=== PATIENT | female | born 1985 | race Caucasian/White ===

== ENCOUNTER 2017-10-29 00:56 | Observation (INO) | payer BC ==
[2016-03-29 15:52] VITALS: Ht 162.6 cm; Wt 54.4 kg
--- NOTE | 2017-10-28 22:52 | HISTORY AND PHYSICAL ---
DATE OF ADMISSION: October 29, 2017 CHIEF COMPLAINT Abnormal bleeding. HISTORY OF PRESENT ILLNESS The patient is a 31-year-old 2 with a many month history of abnormal bleeding. She reports the bleeding is moderate with severe at times which would last several days. The bleeding has worsened over the past several months and has not been improved with use of oral contraceptives. After discussion of risks and alternatives, the patient elected to proceed with laparoscopic-assisted vaginal hysterectomy, bilateral salpingectomy, modified Bowen culdoplasty, and diagnostic cystoscopy. MEDICATIONS 1. Cryselle. 2. Lysine. 3. TruBiotics. 4. vitamin. 5. Zofran. ALLERGIES SULFA. REVIEW OF SYSTEMS GENITOURINARY: Per HPI. GENERAL, SKIN, EYES, EARS, NOSE, MOUTH, NECK, RESPIRATORY, CARDIOVASCULAR, GASTROINTESTINAL, NEUROLOGICAL, AND PSYCHIATRIC: All reviewed and noncontributory. PAST MEDICAL HISTORY 1. HPV. 2. Mild dysplasia. PAST SURGICAL HISTORY She has had two C-sections along with a bilateral tubal ligation. FAMILY HISTORY Father with a stroke, heart disorder, pacemaker, and stomach cancer. SOCIAL HISTORY She drinks occasionally. She is a former smoker. No illicit drug use. PHYSICAL EXAMINATION VITAL SIGNS: BP 100/58, temp 98.2, weight 126. CONSTITUTIONAL: Well-nourished, well-developed female in no distress. SKIN: Without rash or lesions. NECK: Supple, without masses. HEART: Regular rate and rhythm. LUNGS: Clear to auscultation bilaterally. ABDOMEN: Soft, nontender, nondistended. Bowel sounds positive. EXTREMITIES: Nontender. No edema. PSYCHIATRIC: Alert and oriented times three. Normal mood and affect. PELVIC: Normal external female genitalia. Well-estrogenized vaginal lining. No bladder tenderness. No adnexal masses or tenderness. Uterus anteverted, normal size, mobile, and nontender. ASSESSMENT AND PLAN Menorrhagia. Plan to perform laparoscopic-assisted vaginal hysterectomy, bilateral salpingectomy, modified Bowen culdoplasty, and diagnostic cystoscopy. [facility]
[~2017-10-29] VITALS: Ht 162.6 cm; Wt 54.4 kg
[2017-10-29] VITALS (11 sets, daily range): BP systolic 80–118; BP diastolic 51–76
[~2017-10-29 00:56] MED LIST: CEP500 PO; DENIES; IBUP800T37 PO; LOR5 PO; ONDA4TAB9 PO; OXYC-373 PO; PER PO; PREN-119 PO
[2017-10-29 05:58] LABS: PLATELET COUNT, AUTOMATED 243 K/uL (150-450)
[2017-10-29] MEDS ORDERED: cefOXitin/DEX(*) 2GM/50ML PREM 50 ML IVPB ONE (06:30)
[2017-10-29] MEDS ORDERED: HYDROmorphone HCL 2 MG TAB PO ONE (06:30)
[2017-10-29] MEDS ORDERED: MIDAZOLAM 2 MG/2 ML VIAL IVP PRN (06:30)
[2017-10-29] MEDS ORDERED: LIDOCAINE/SOD BICARB 8.4% SYR ID ONE (06:30)
[2017-10-29] MEDS ORDERED: FAMOTIDINE 20 MG TAB PO ONE (06:30)
[2017-10-29] MEDS ORDERED: NORMOSOL R SOLN(*) 1000 ML BAG 1,000 ML IV PRN (06:30)
[2017-10-29] MEDS ORDERED: PHENAZOPYRIDINE 200 MG TAB PO ONE (06:30)
[2017-10-29] MEDS ORDERED: ROPIVACAINE 0.2% 20 ML VIAL ONE (07:00)
[2017-10-29] MEDS ORDERED: fentaNYL CITR 250 MCG/5 ML AMP ONE (07:12)
[2017-10-29] MEDS ORDERED: PROPOFOL EMUL(*) 10MG/ML 20 ML 20 ML ONE (07:13)
[2017-10-29] MEDS ORDERED: LIDOCAINE MPF 1% 5 ML VIAL ONE (07:14)
[2017-10-29] MEDS ORDERED: MORPHINE PF 5 MG/10 ML AMP ONE (07:15)
[2017-10-29] MEDS ORDERED: DEXAMETHASONE SOD 4 MG/ML VIAL ONE ×2 (07:37→10:34)
[2017-10-29] MEDS ORDERED: ONDANSETRON 4 MG/2 ML VIAL ONE ×2 (07:39→10:35)
--- NOTE | 2017-10-29 07:42 | Post Operative Note ---
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
[2017-10-29] MEDS ORDERED: OXYC-373 PO (07:44)
[2017-10-29] MEDS ORDERED: IBUP800T37 PO (07:44)
[2017-10-29] MEDS ORDERED: EPINEPHrine HCL 30 MG/30 ML ONE (07:45)
[2017-10-29] MEDS ORDERED: ROCURONIUM BROM 10 MG/ML 5 ML ONE (07:45)
[2017-10-29] MEDS ORDERED: SUGAMMADEX SOD 200 MG/2 ML SDV ONE (08:34)
[2017-10-29] MEDS ORDERED: PHENYLEPHRINE/NS/PF 0.4MG/10ML ONE (08:55)
[2017-10-29] MEDS ORDERED: FAMOTIDINE(*) 20MG/50ML PREMIX 50 ML IVPB PRN (09:42)
[2017-10-29] MEDS ORDERED: PROMETHAZINE 25 MG/ML 1 ML AMP IVP PRN (09:45)
[2017-10-29] MEDS ORDERED: ONDANSETRON 4 MG/2 ML VIAL IVP PRN ×2 (09:45→11:20)
[2017-10-29] MEDS ORDERED: METOCLOPRAMIDE 10 MG/2 ML SDV IVP PRN (09:45)
[2017-10-29] MEDS ORDERED: HYDROmorphone HCL 2 MG TAB PO PRN (09:45)
--- NOTE | 2017-10-29 09:48 | OB/GYN Discharge Summary ---
Discharge Summary Reason for Hosp/Final Diag: (1) Status post laparoscopic assisted vaginal hysterectomy Hospital Course & Plan: LAVH BISALPINGECTOMY PERFORMED NO COMPLICATION, ON DAY 1, PAIN CONTROLLED TOLERATING DIET AND ACTIVITY Lates Vital Signs Vital Signs Date Time Temp Pulse Resp B/P (MAP) Pulse Ox O2 Delivery O2 Flow Rate FiO2 10/29/17 06:00 97.8 51 16 118/74 (89) 95 Room Air Weight (Pounds): 120 Result Diagram: 10/22/17 0556 Condition: Improved Discharge: Home, Self Half-Way Meds Active Scripts Oxycodone Hcl/Acetaminophen (OXYCODONE-ACETAMINOPHEN 5-325) 1 Each Tablet, 1-2 EACH PO Q4H Y for PAIN, #30 TAB 0 Refills TAKE 1-2 TABLET NEEDED FOR PAIN - NO CLOSER THAN EVERY 4 HOURS. Prov:JAN MARTIN MD 10/29/17 Ibuprofen (IBUPROFEN) 800 Mg Tablet, 1 TAB PO Q8H, #30 TAB 0 Refills Take with food every 8 hours. Prov:JAN MARTIN MD 10/29/17 Discontinued Reported Medications Vit/Iron Fumarate/Fa ( VITAMIN TABLET) 1 Each Tablet, 1 EACH PO DAILY 08/17/15 Discontinued Scripts Oxycodone Hcl/Acetaminophen (OXYCODONE-ACETAMINOPHEN 5-325) 1 Each Tablet, 1-2 EACH PO Q4H Y for PAIN, #30 TAB TAKE 1-2 TABLET NEEDED FOR PAIN - NO CLOSER THAN EVERY 4 HOURS. Prov:JAN MARTIN MD 03/30/16 Ibuprofen (IBUPROFEN) 800 Mg Tablet, 1 TAB PO Q8H, #30 TAB Take with food every 8 hours. Prov:JAN MARTIN MD 03/30/16 Follow up with: Dr. Martin [phone] Follow up in: 6 wks PP or PO, 2 wks PO Discharge Diet: As Tolerates Discharge Activity: Pelvic Rest Copies to: JAN MARTIN MD, JOHN MD Oct 29, 2017 09:48
[2017-10-29] MEDS: ACETAMINOPHEN(*)1000 MG/100 ML 100 ML IVPB SCH ×3 (10:03→21:56)
[2017-10-29] MEDS: KETOROLAC 30 MG/ML VIAL IVP SCH ×3 (10:43→22:22)
[2017-10-29] MEDS ORDERED: NALBUPHINE HCL 10 MG/ML AMP IVP PRN (11:15)
[2017-10-29] MEDS ORDERED: NALOXONE HCL 0.4 MG/ML VIAL IVP PRN (11:15)
[2017-10-29] MEDS ORDERED: diphenhydrAMINE 25 MG CAP PO PRN (11:20)
[2017-10-29] MEDS: DLR(*) 1000 ML BAG 1,000 ML IV PRN (12:24)
[2017-10-29] MEDS: SIMETHICONE 80 MG CHEW CHEW SCH ×3 (12:57→20:22)
--- NOTE | 2017-10-29 13:06 | OPERATIVE REPORT 1 ---
EVENT DATE: October 29, 2017 SURGEON: Phillip Martin MD ANESTHESIOLOGIST: Koby Silverman MD ANESTHESIA: fishery biologist: Spencer Mclain DO PREOPERATIVE DIAGNOSIS Menorrhagia. POSTOPERATIVE DIAGNOSIS Menorrhagia. PROCEDURE Laparoscopic-assisted vaginal hysterectomy, bilateral salpingectomy, modified Bowen culdoplasty, diagnostic cystoscopy. COMPLICATIONS None. FLUIDS 1650 mL of Normosol IV. ESTIMATED BLOOD LOSS 100 mL. INDICATIONS The patient is a 31-year-old multiparous female with abnormal bleeding uncontrolled with control pills. She no longer desired fertility, and desired to proceed with hysterectomy. FINDINGS Uterus 6 x 5 cm, normal ovaries bilaterally. She had bilateral ureteral jets at the end of the procedure. No injuries were noted abdominally or within the bladder. DESCRIPTION OF PROCEDURE After informed consent was obtained, the patient was taken to the operating room with the IV running, placed in a sitting position, where intrathecal anesthetic was obtained, then placed in a supine position, where general anesthesia was obtained without difficulty. She was then placed in the [facility], examined under anesthesia with the above findings. She was prepped and draped in the usual fashion. A Maldonado catheter was placed. Side- out speculum was placed into the vagina, cervix grasped with a single tooth tenaculum. The uterus sounded to 9 cm. A #8 DARIEL uterine manipulator was advanced into the uterine cavity to provide a means to manipulate the uterus. The remainder of the instruments were removed from the vagina. The legs were lowered. Attention was then turned to the abdomen, where 0.2 Naropin was infiltrated into the umbilicus, skin incision made with a scalpel, and the Veress needle advanced into the abdominal cavity. Normal CO2 filling pressures were noted. After adequate insufflation, the 5 mm bladeless trocar was advanced under laparoscopic guidance. Intraabdominal placement was confirmed by laparoscopy. No injuries were noted at the time of entry. The left and right lateral ports were placed in a similar fashion with 0.2 Naropin, skin incisions made with a scalpel and the 5 mm bladeless trocars were advanced under direct visualization. The patient was then placed in Trendelenburg positioning. No abnormalities were noted within the abdominal cavity or the pelvis. The left tube was then identified, grasped with graspers, and the Gyrus cutting forceps was used to transect the tube away from the ovary and mesosalpinx to the cornual region of the uterus with the Gyrus cutting forceps. The utero-ovarian ligament was coapted and transected with the Gyrus cutting forceps. Round ligament on the left was coapted and transected with the Gyrus cutting forceps. Attention was then turned to the right. The right tube was transected away from the right ovary and the mesosalpinx down to the cornual region of the uterus with the Gyrus cutting forceps, coapting and transecting. The utero-ovarian ligament was then coapted and transected, the round ligament coapted and transected. The anterior and posterior leaves of the broad ligament were then . The anterior leaf was transected down to the lower uterine segment, created a bladder flap anteriorly. The posterior leaf of the broad ligament was then coapted and transected down to the right uterosacral ligament. Uterine arteries were identified and coapted at the insertion of the lower uterine segment. Attention was then turned to the left portion. The anterior and posterior leaf of the broad ligament were . The anterior leaf was transected down to the lower uterine segment, completing the bladder flap anteriorly. The posterior leaf was then transected down to the left uterosacral ligament. The uterine arteries were identified and coapted at their insertion to the lower uterine segment. Gas was allowed to escape. Instruments were removed from the abdominal cavity. Attention was then turned to the vaginal portion, where the legs were elevated. A short weighted speculum was placed into the vagina. Cervix was grasped with Makeda clamps. Cervix was circumscribed with the Bovie. Posterior cul-de-sac was entered sharply with Nixon scissors. The long weighted speculum was then replaced with a short weighted speculum. The uterosacrals were identified bilaterally, then they were grasped with curved Katherin clamps, clamped with curved Katherin clamps, transected and suture ligated with #0-Vicryl, tagged for later use in the Bowen's culdoplasty. The vaginal lining was then dissected off the endocervical fascia with Metzenbaum scissors. The cardinal ligaments were identified bilaterally, clamped with Katherin clamps, transected and suture ligated with #0-Vicryl. The anterior compartment was then entered sharply with Metzenbaum scissors. Right angle retractor was placed into the anterior cul-de -sac. The confirmation of the anterior cul-de-sac was performed. The remainder of the pedicle was then clamped with Katherin clamps bilaterally, transected and suture ligated with #0-Vicryl and tagged. The uterus was removed from the pelvis. Inspection of the pedicles revealed hemostasis. The peritoneum was grasped at the 12 o'clock position, closed in a counter- clockwise manner down to the right uterosacral ligament in a pursestring fashion. The uterosacral ligaments were then plicated to the ipsilateral portion of the vaginal lining bilaterally, initiating the Bowen's procedure. Short weighted speculum was then placed. the posterior peritoneum was then purse-string sutured, and the suture exiting out of the posterior wall of the vagina bilaterally with the Bowen's sutures. The peritoneum was then further closed in a purse-string fashion in a counter-clockwise manner, closing the peritoneum. Irrigation was performed. There was some oozing from the posterior cuff that was made hemostatic with the Bovie. The vaginal cuff was then closed in a running locked fashion with 2-0 Vicryl plus in a running locked fashion down to the uterosacral ligaments. Uterosacral ligaments were plicated in the midline. Posterior cuff was then closed in a running-locked fashion. The Bowen sutures were then tied, elevating the posterior cuff nicely into the vaginal vault. Irrigation was performed. No further bleeding was noted. All instruments were removed from the vagina. Maldonado catheter was removed. Cystoscopy was performed. Bilateral ureteral jets could be observed through each ureteric orifice. No injuries were noted within the bladder. The bladder was then drained. Maldonado catheter was replaced. Legs were lowered. Attention was then turned to the abdomen, which was re-insufflated. There was some oozing from the right ovary, which was made hemostatic with the Bovie. The remainder of the pelvis was irrigated, and hemostasis was ensured. Gas was then allowed to escape from the abdomen. All instruments were removed from the abdominal cavity. The skin was closed with 4-0 Monocryl and Dermabond. Patient was taken out of [facility], awakened from anesthesia and taken to the recovery room in stable condition. [facility]
--- NOTE | 2017-10-29 16:09 | OB/GYN Progress Note ---
OB Subjective Progress Notes Subjective Pain controlled, Tolerating diet and activity. GI: NEG Nausea, NEG Vomiting, NEG Flatus Pain: Mild OB Objective Physical Exam Vital Signs Date Time Temp Pulse Resp B/P (MAP) Pulse Ox O2 Delivery O2 Flow Rate FiO2 10/29/17 15:47 1.0 10/29/17 15:47 97.1 43 14 95/64 (74) 100 Nasal Cannula Intake and Output 10/30/17 07:00 Intake Total 2280 ml Output Total 1605 ml Balance 675 ml Intake Oral 480 ml IV Total 1800 ml Output Urine Total 1505 ml Estimated Blood Loss 100 ml Cardiovascular: Regular Rate and Rhythm Respiratory: Clear to Auscultation Abdomen: Soft, Non-Tender, Non-Distended, Bowel Sounds Present Extremities: No Edema Result Diagram: 10/22/17 0556 Assessment and Plan Post Op Day: 0 [employer] Assessment: Stable [employer] Plan: Discharge Home Tomorrow Problems: (1) Status post laparoscopic assisted vaginal hysterectomy Assessment & Plan: Pain controlled, Tolerating diet and activity. JAN DIAZ MD Oct 29, 2017 16:09
[2017-10-29] MEDS: DOCUSATE CALCIUM 240 MG CAP PO SCH (20:22)
[2017-10-29] MEDS: FAMOTIDINE 20 MG TAB PO SCH (20:22)
[2017-10-29] MEDS ORDERED: CELECOXIB 200 MG CAP PO SCH (21:00)
[2017-10-30 00:30] VITALS: BP 101/70
[2017-10-30] MEDS: DLR(*) 1000 ML BAG 1,000 ML IV PRN (00:36)
[2017-10-30] MEDS ORDERED: IBUPROFEN 800 MG TAB PO SCH (04:30)
[2017-10-30] MEDS: ACETAMINOPHEN(*)1000 MG/100 ML 100 ML IVPB SCH ×2 (04:35→10:00)
[2017-10-30 04:36] VITALS: BP 102/64
[2017-10-30 06:57] LABS: PLATELET COUNT, AUTOMATED 194 K/uL (150-450)
--- NOTE | 2017-10-30 07:11 | OB/GYN Progress Note ---
OB Subjective Progress Notes Subjective Pain controlled, Tolerating diet and activity. GI: NEG Nausea, NEG Vomiting, NEG Flatus Pain: Mild OB Objective Physical Exam Vital Signs Date Time Temp Pulse Resp B/P (MAP) Pulse Ox O2 Delivery O2 Flow Rate FiO2 10/30/17 04:36 98.0 38 16 102/64 (77) 100 Nasal Cannula 0.3 Cardiovascular: Regular Rate and Rhythm Respiratory: Clear to Auscultation Abdomen: Soft, Non-Tender, Non-Distended, Bowel Sounds Present Extremities: No Edema Result Diagram: 10/30/17 0648 Assessment and Plan Problems: (1) Status post laparoscopic assisted vaginal hysterectomy Assessment & Plan: Pain controlled, Tolerating diet and activity. Will try voiding trial today. JAN DIAZ MD Oct 30, 2017 07:11
[2017-10-30] MEDS ORDERED: BISACODYL 10 MG SUPP PR PRN (07:15)
[2017-10-30 08:00] VITALS: BP 110/77
[2017-10-30] MEDS: DOCUSATE CALCIUM 240 MG CAP PO SCH (09:02)
[2017-10-30] MEDS: SIMETHICONE 80 MG CHEW CHEW SCH (09:02)
[2017-10-30] MEDS: FAMOTIDINE 20 MG TAB PO SCH (09:03)
[2017-10-30] MEDS ORDERED: INFLUENZA VIRUS VAC 0.5 ML SYR IM ONLY ONE (09:45)
[2017-10-30 10:30] VITALS: BP 120/79
== END 2017-10-30 10:14 | disposition home or self-care (01) ==
LOC: OR 00:56 → PED 11:10
PROVIDERS: ADMIT Obstetrics & Gynecology; ATTEND Obstetrics & Gynecology
DX: N92.0 Excessive and frequent menstruation with regular cycle (principal)
CPT/HCPCS: 36415; 58552; 84703; 85025; 88307; G0378; J0131; J0171; J0694; J1100; J1885; J2001; J2250; J2270; J2300; J2370; J2405; J2704; J2795; J3010

== ENCOUNTER → 2019-02-05 | Outpatient (CLI) | payer BC ==
[2016-03-29 15:52] VITALS: BMI 29.7
--- NOTE | 2019-02-05 09:55 | RADIOLOGY IMAGING REPORT ---
FACILITY: [facility] PATIENT NAME: Kate Cedillo : 1985 MR: [id number] V: [id number] EXAM DATE: ORDERING PHYSICIAN: CRISTAL PINEDO TECHNOLOGIST: Location: [facility] Patient: Kate Cedillo : 1985 Visit/Account:[id number] Date of Sevice: 02/05/2019 MR BRAIN/BRAIN STEM W/O CON Comparisons: None. Additional pertinent history: Concussion without loss of consciousness. Acute posttraumatic headache TECHNIQUE: Multiplanar, multisequence brain MRI was performed without gadolinium contrast. FINDINGS: Sagittal midline structures and craniocervical junction: Negative. Midline shift: None. Ventricles: Negative. Brain parenchyma: Diffusion weighted imaging: Negative. Gradient sequence: Negative. T2 weighted FLAIR images: Negative. Extra-axial spaces: Negative. Dural venous sinuses and major arterial flow voids: Negative. Mastoid air cells and paranasal sinuses: Mild mucosal thickening involving both maxillary sinuses. Surrounding soft tissues and orbits: Negative. Impression: Normal brain MRI without contrast. Report Dictated By: Abram Mcneil MD at 02/05/2019 9:43 AM Report E-Signed By: Abram Mcneil MD at 02/05/2019 9:51 AM WSN:[id number]
== END ==
LOC: MRI 00:51
PROVIDERS: ATTEND Physician Assistant Medical
DX: S06.0X0A Concussion without loss of consciousness, initial encounter (principal); R55 Syncope and collapse; G44.319 Acute post-traumatic headache, not intractable
CPT/HCPCS: 70551